=== PATIENT | female | born 1985 | race Caucasian/White ===

== ENCOUNTER → 2020-03-19 | Outpatient (CLI) | payer MEDICAID ==
--- NOTE | 2020-03-19 14:39 | Diagnostic Imaging Report ---
INDICATION: survey. TECHNIQUE: Multiple real-time grayscale images were obtained over the gravid uterus. COMPARISON: None. FINDINGS: There is a single live fetus in a vertex presentation. heart rate was recorded 134 bpm. Placenta is posterior. Amniotic fluid index is lower limits 7.6 cm. kidneys, bladder and stomach are unremarkable. brain was poorly visualized due to position. There is four-chambered heart. There is a three-vessel cord with normal insertion. spine is unremarkable. Cervical length is 5 cm. Biometrical measurements are as follows: Biparietal 7.51 cm, age 30 weeks 1 days. Head circumference 27.47 cm, age 30 weeks 1 days. Abdominal circumference 26.49 cm, age 30 weeks 5 days. Femur length 5.98 cm, age 31 weeks 1 days. Sonographic estimate age: 30 weeks 4 days. Sonographic estimated date of delivery: 05/24/2020. Estimated Weight: 1618 gm (+/- 236 gm). LMP percentile: 41%. heart rate: 134 beats per minute. number: 1 of 1. IMPRESSION: Single live IUP 30 weeks 4 days gestational age. Estimated date of confinement sonographically is 05/24/2020. Dictated by: Dictated on workstation # [id number]
== END ==
LOC: RAD 11:45
PROVIDERS: ATTEND Obstetrics & Gynecology
DX: Z34.93 Encounter for supervision of normal pregnancy, unspecified, third trimester (principal); Z3A.30 30 weeks gestation of pregnancy
CPT/HCPCS: 76805

== ENCOUNTER → 2020-04-07 | Outpatient (CLI) | payer MEDICAID | LOC: LABNPT 13:37 | PROVIDERS: ATTEND Obstetrics & Gynecology | DX: O13.9 Gestational [pregnancy-induced] hypertension without significant proteinuria, unspecified trimester (principal); Z3A.00 Weeks of gestation of pregnancy not specified | CPT/HCPCS: 82570; 84156 ==

== ENCOUNTER 2020-04-29 12:09 | Outpatient (CLI) | payer MEDICAID ==
[~2020-04-29] VITALS: Ht 172.7 cm; Wt 112.2 kg
--- NOTE | 2020-04-29 12:14 | NUR ---
RICARDA WAYNE presented to unit via W/C from ED, accompanied by ER STAFF, with c/o CONTRACTIONS, NONREACTIVE NST IN OFFICE. RICARDA WAYNE weighed, gowned, voided, and to bed. EFHM and TOCO applied, VS taken. RICARDA WAYNE oriented to bed controls, call light, TV, heat, and A/C controls.
[2020-04-29] MEDS ORDERED: D5 LR IV SOLUTION 1,000 ML IV SCH (12:30)
[2020-04-29 12:33] VITALS: BP 118/72
[2020-04-29 12:59] LABS: BASOPHILS % (AUTO) 0 % (0-10); EOSINOPHILS # (AUTO) 0.1 10^3/uL (0.0-0.3); EOSINOPHILS % (AUTO) 1 % (0-10); HEMATOCRIT 34 % (35-52); HEMOGLOBIN 11.1 g/dL (11.5-16.0); LYMPHOCYTES # (AUTO) 1.8 10^3/uL (1.0-4.0); LYMPHOCYTES % (AUTO) 14 % (12-44); MEAN CORPUSCULAR HEMOGLOBIN 31 pg (25-34); MEAN CORPUSCULAR HGB CONC 32 g/dL (32-36); MEAN CORPUSCULAR VOLUME 96 fL (80-99); MEAN PLATELET VOLUME 9.5 fL (9.0-12.2); MONOCYTES # (AUTO) 0.6 10^3/uL (0.0-1.0); MONOCYTES % (AUTO) 5 % (0-12); NEUTROPHILS # (AUTO) 10.4 10^3/uL (1.8-7.8); NEUTROPHILS % (AUTO) 80 % (42-75); PLATELET COUNT 274 10^3/uL (130-400); WHITE BLOOD COUNT 12.9 10^3/uL (4.3-11.0)
[2020-04-29 14:25] VITALS: BP 118/72
[2020-04-29] MEDS ORDERED: PNV11TAB5 PO (14:30)
--- NOTE | 2020-04-29 15:55 | NUR ---
ORDER RECEIVED FOR DISCHARGE HOME. DR AWARE OF PT CTX, REACTIVE NST NOTED.
--- NOTE | 2020-04-29 16:00 | NUR ---
MONITORS DC'D. PT REFUSES TO HAVE THE REMAINING FLUIDS BOLUS. IV SALINE LOCKED. PT UP TO THE BATHROOM TO CHANGE INTO OWN CLOTHES.
--- NOTE | 2020-04-29 16:10 | NUR ---
DISCHARGE PAPERS PROVIDED AND REVIEWED WITH PT, PT VERBALIZES UNDERSTANDING AND DENIES ANY QUESTIONS AT THIS TIME.
--- NOTE | 2020-04-29 16:13 | NUR ---
PT DISCHARGED FROM [facility] TO [facility] AMBULATORY IN STABLE CONDITION.
--- NOTE | 2020-04-30 07:55 | Physician Query-Final Dx ---
CAESAR MARIE 04/30/20 0755: Clinic Account Progress/Dx Physician Query: Please give diagnosis Please include # weeks gestation Date of Service Apr 29, 2020 at 12:09 VIJAY MUNOZ DO 04/30/20 1639: Clinic Account Progress/Dx DIAGNOSIS: Diagnosis 37 WEEK iup Previous Decreased movement. Irregular contractions CAESAR MARIE Apr 30, 2020 07:55 VIJAY MUNOZ DO Apr 30, 2020 16:39
== END 2020-04-29 16:13 | disposition home or self-care (01) ==
LOC: WSo 12:09 → LDRP 12:10 → WSo 16:13
PROVIDERS: ATTEND Obstetrics & Gynecology
DX: O62.8 Other abnormalities of forces of labor (principal); O34.219 Maternal care for unspecified type scar from previous cesarean delivery; O36.8130 Decreased fetal movements, third trimester, not applicable or unspecified; Z3A.37 37 weeks gestation of pregnancy
CPT/HCPCS: 36415; 85025; 86850; 86900; 86901

== ENCOUNTER 2020-05-04 05:38 | Outpatient (RCR) | payer MEDICAID ==
[~2020-05-04] VITALS: Ht 172.7 cm; Wt 109.1 kg
[~2020-05-04 05:38] MED LIST: PNV11TAB5 PO
== END 2020-05-04 12:05 | disposition home or self-care (01) ==
LOC: PREOP 05:38
PROVIDERS: ATTEND Obstetrics & Gynecology
DX: Z01.818 Encounter for other preprocedural examination (principal); Z20.822 Contact with and (suspected) exposure to COVID-19

== ENCOUNTER → 2020-05-08 | Outpatient (CLI) | payer MEDICAID ==
[~2020-05-08] MED LIST changes: +ACHD5005 PO; +DCS100C PO; +IBUP-844 PO
== END ==
LOC: LAB FS 11:08
PROVIDERS: ATTEND Obstetrics & Gynecology
DX: Z01.89 Encounter for other specified special examinations (principal); Z20.822 Contact with and (suspected) exposure to COVID-19
CPT/HCPCS: 87635

== ENCOUNTER 2020-05-11 06:15 | Inpatient (IN) | payer MEDICAID ==
[~2020-05-11] VITALS: Ht 172 cm; Wt 114.0 kg
[2020-05-11] VITALS (8 sets, daily range): BP systolic 101–132; BP diastolic 52–83
[~2020-05-11 06:15] MED LIST changes: -ACHD5005 PO; +CITRIC ACID/SOB CIT (BICITRA) 30 ML UDC ONE; -DCS100C PO; +ERYTHROMYCIN OPHTH OINT 1 GM (SINGLE USE) TUBE ONE; +FAMOTIDINE 20MG/2ML IV (PEPCID) ONE; -IBUP-844 PO; +METOCLOPRAMIDE INJ 10 MG/2 ML (REGLAN) ONE; +PHYTONADIONE (VIT. K) NEONATAL 1 MG/0.5 ML AMP ONE; +ceFAZolin 2 GM IV Premixed 50 ML ONE
[2020-05-11] MEDS ORDERED: FAMOTIDINE 20MG/2ML IV (PEPCID) IV ONE (06:30)
[2020-05-11] MEDS ORDERED: METOCLOPRAMIDE INJ 10 MG/2 ML (REGLAN) IV ONE (06:30)
[2020-05-11] MEDS ORDERED: LACTATED RINGERS 1,000 ML IV SCH (06:30)
[2020-05-11] MEDS ORDERED: CITRIC ACID/SOB CIT (BICITRA) 30 ML UDC PO ONE (06:30)
[2020-05-11] MEDS ORDERED: ceFAZolin 2 GM IV Premixed 50 ML IV ONE (06:30)
[2020-05-11] MEDS: LACTATED RINGERS 1,000 ML IV SCH ×2 (06:42→07:40)
[2020-05-11 06:52] LABS: BASOPHILS % (AUTO) 0 % (0-10); EOSINOPHILS # (AUTO) 0.2 10^3/uL (0.0-0.3); EOSINOPHILS % (AUTO) 1 % (0-10); HEMATOCRIT 35 % (35-52); HEMOGLOBIN 11.5 g/dL (11.5-16.0); LYMPHOCYTES # (AUTO) 2.3 10^3/uL (1.0-4.0); LYMPHOCYTES % (AUTO) 18 % (12-44); MEAN CORPUSCULAR HEMOGLOBIN 31 pg (25-34); MEAN CORPUSCULAR HGB CONC 33 g/dL (32-36); MEAN CORPUSCULAR VOLUME 95 fL (80-99); MEAN PLATELET VOLUME 9.4 fL (9.0-12.2); MONOCYTES # (AUTO) 0.7 10^3/uL (0.0-1.0); MONOCYTES % (AUTO) 6 % (0-12); NEUTROPHILS # (AUTO) 9.5 10^3/uL (1.8-7.8); NEUTROPHILS % (AUTO) 75 % (42-75); PLATELET COUNT 311 10^3/uL (130-400); WHITE BLOOD COUNT 12.8 10^3/uL (4.3-11.0)
[2020-05-11] MEDS ORDERED: OXYTOCIN PRE-MIX DRIP 1,000 ML IV ONE (07:00)
[2020-05-11] MEDS ORDERED: PHENYLEPHRINE 100 MCG/ML 10 ML (ANESTHESIA) SYR ONE (07:00)
[2020-05-11] MEDS ORDERED: fentaNYL INJECTION 100 MCG/2 ML AMP ONE (07:01)
--- NOTE | 2020-05-11 07:19 | History & Physical-OB ---
OB - Chief Complaint & HPI Date/Time Date of Admission: Date of Admission: May 11, 2020 at 06:15 Date seen by a Provider: May 11, 2020 Time Seen by a Provider: 07:15 Chief Complaint/History OB-Reason for Admission/Chief: Section Hx : 7 Hx Para: 7 Expected Date of Delivery: May 17, 2020 Gestational Age in Weeks: 39 Gestational Age in Days: 1 Indication for : desires repeat Admission Nurse Assessment Rev: Yes History of Labs A pos Antibody neg RI HBsAg NR HIV NR GC neg GBS neg Allergies and Home Medications Allergies Coded Allergies: No Known Drug Allergies (Unverified , 04/29/20) Home Medications Gtb047/FA/Omega3/Dha/Fish Oil 1 Each Tab.chew, 2 EACH PO DAILY, (Reported) Patient Home Medication List Home Medication List Reviewed: Yes OB - History Hx of Present Care: Yes Ultrasounds: Normal mid trimester US Obstetrical Complications: None Medical Complications: None Patient Past Medical History tobacco use OB - Admission Exam Physical Exam Vitals: Vital Signs 05/11/20 06:54 Temp 36.6 Pulse 77 Resp 18 Pulse Ox 98 O2 Delivery Room Air HEENT: NCAT Heart: Rhythm Normal Lungs: Clear Abdomen: Gravid Extremities: Normal Reflexes: Normal Cervical Dilatation: None Effacement: 50% Station: -1 Membranes: Intact Heart Rate: 130's Accelerations: Accelerations Present Decelerations: No Decelerations Short Term Variability: Present Penitentiary Variability: Average (6-25) Contractions on Admission: 6-10 Minutes Apart Intensity: Mild Labs Laboratory Tests Test 05/11/20 06:35 Range/Units White Blood Count 12.8 H 4.3-11.0 10^3/uL Red Blood Count 3.73 L 3.80-5.11 10^6/uL Hemoglobin 11.5 11.5-16.0 g/dL Hematocrit 35 35-52 % Mean Corpuscular Volume 95 80-99 fL Mean Corpuscular Hemoglobin 31 25-34 pg Mean Corpuscular Hemoglobin Concent 33 32-36 g/dL Red Cell Distribution Width 13.7 10.0-14.5 % Platelet Count 311 130-400 10^3/uL Mean Platelet Volume 9.4 9.0-12.2 fL Immature Granulocyte % (Auto) 1 % Neutrophils (%) (Auto) 75 42-75 % Lymphocytes (%) (Auto) 18 12-44 % Monocytes (%) (Auto) 6 0-12 % Eosinophils (%) (Auto) 1 0-10 % Basophils (%) (Auto) 0 0-10 % Neutrophils # (Auto) 9.5 H 1.8-7.8 10^3/uL Lymphocytes # (Auto) 2.3 1.0-4.0 10^3/uL Monocytes # (Auto) 0.7 0.0-1.0 10^3/uL Eosinophils # (Auto) 0.2 0.0-0.3 10^3/uL Basophils # (Auto) 0.0 0.0-0.1 10^3/uL Immature Granulocyte # (Auto) 0.1 0.0-0.1 10^3/uL OB - Assessment/Plan/Diagnosis Assessment Assessment: section Admission Dx 35 yo @ 39 weeks Previous GBS neg Admission Status: Inpatient Order (span 2 midnights) Reason for Inpatient Admission: Repeat Plan Plan: Section VIJAY MUNOZ DO May 11, 2020 07:19
[2020-05-11] MEDS ORDERED: MEASLES,MUMPS,RUBELLA 1 EA INJ SC SCH (07:30)
[2020-05-11] MEDS ORDERED: TETANUS,DIPTH,PERTUSS P/F (BOOSTRIX) 0.5 ML VIAL IM SCH (07:30)
[2020-05-11] MEDS ORDERED: ONDANSETRON 4 MG/2 ML (SDV) Z0FRAN IVP PRN (07:30)
[2020-05-11] MEDS ORDERED: ACHD5005 PO (07:32)
[2020-05-11] MEDS ORDERED: DCS100C PO (07:32)
[2020-05-11] MEDS ORDERED: IBUP-844 PO (07:32)
--- NOTE | 2020-05-11 07:33 | Discharge Inst-Women's Service ---
Discharge Inst-Women's Serv Depart Medication/Instructions New, Converted or Re-Newed RX: RX on Chart Final Diagnosis POD 2 RLTCS Problems Reviewed?: Yes Consults/Follow Up Additional Follow Up: Yes Orders/Referrals Dr. Munoz in 7-10 days and in 6 weeks Activity Activity: Activity as Tolerated Driving Instructions: No Driving for 1 Week NO SMOKING: NO SMOKING Nothing Inside Vagina: No Douching, No [place], No Tampons Diet Discharge Diet: No Restrictions Symptoms to Report to : Bleeding Excessive, Pain Increased, Fever Over 101 Degrees F, Vaginal Bleeding Increase, Questions/Concerns For Any Problems or Questions: Contact Your Physician VIJAY MUNOZ DO May 11, 2020 07:33
[2020-05-11] MEDS ORDERED: BUPIVACAINE 0.5% 30 ML (SENSORCAINE) VIAL ONE (08:08)
[2020-05-11] MEDS: OXYTOCIN PRE-MIX DRIP 500 ML IV SCH ×2 (09:06→13:29)
[2020-05-11] MEDS: KETOROLAC 30 MG/ML VIAL IV SCH ×3 (09:24→20:39)
[2020-05-11] MEDS: HYDROcodone/APAP 5 MG/325 MG (LORTAB) TAB PO PRN ×3 (10:47→22:33)
--- NOTE | 2020-05-11 11:24 | OPERATIVE REPORT ---
DATE OF SERVICE: PREOPERATIVE DIAGNOSES: 1. A 35-year-old Pito P7 at 39 weeks and 1-day gestation. 2. Previous . POSTOPERATIVE DIAGNOSES: 1. A 35-year-old GYoshi P7 at 39 weeks and 1-day gestation. 2. Previous . PROCEDURE: Repeat low transverse section. SURGEON: Eriberto Vazquez DO ANESTHESIA: Spinal. ESTIMATED BLOOD LOSS: 500 mL. URINE OUTPUT: 50 mL clear at the end of procedure. FLUIDS: 2200 mL lactated Ringer's solution. FINDINGS: A live male weighing 7 pounds 11 ounces, Apgars of 8 and 9. Grossly normal appearing uterus, bilateral fallopian tubes and ovaries. SPECIMEN SENT: Placenta. INDICATIONS FOR PROCEDURE: This 35-year-old female is a patient, who had sought care in my office. She was a late transfer of care from [facility]. Upon her initial evaluation, she had risk factors including advanced maternal age and tobacco use in . We discussed these risk factors and their effects on the . She demonstrated understanding of all of this. I also discussed with the patient, risk of repeat , which she wished to proceed with. Risks of procedure were discussed with the patient in detail in the preoperative area including risk of bleeding, infection, damage to surrounding structures including, but not limited to bowel, bladder, ureter, kidneys, possible need for reoperation, postoperative complications that may occur, risk from anesthesia and even . After everything was discussed with the patient in detail and all of her questions were answered, consent was obtained, the patient was taken to the operating room. OPERATIVE REPORT IN DETAIL: Once in the operating room, spinal analgesia was found to be adequate, she was placed in supine position with leftward tilt, prepped and draped in normal sterile fashion where a timeout was performed and anesthesia was tested. I then make a Pfannenstiel skin incision with a knife and carried down to underlying fascia using Bovie cautery. The fascial incision extended laterally using Bovie cautery. Superior aspect of fascial incision was then grasped with Santa clamps, tented up and dissected off the underlying rectus muscles. The inferior aspect of the fascial incision was then grasped with Santa clamps, tented up and dissected off the underlying rectus muscles. Rectus muscle was then dissected down the midline using Carbajal scissors, which exposed the peritoneum, which I entered bluntly and extended using blunt traction. Andry ring retractor was placed in the peritoneal incision, which offers excellent lateral sidewall retraction. I identified the lower uterine segment, which was found to be slightly thinned out and make a low transverse incision to the vesicouterine peritoneum and bluntly dissected off the lower uterine segment. I proceeded with myotomy until membranes were visualized, at which point I extended the uterine incision laterally and superiorly using bandage scissors. Amniotomy was performed at that point. Clear fluid was noted. Infant was found in vertex presentation. With gentle fundal pressure, the 's head was elevated up the incision, where it was delivered through the incision. The nares and oropharynx were bulb suctioned. Anterior and posterior shoulders were delivered after nuchal cord was reduced x1 and the remainder of the infant was then brought to the operative field with a cord was doubly clamped and cut and infant was handed off to waiting nurses in attendance. Cord blood was collected, 3-vessel cord with intact placenta was delivered spontaneously thereafter. IV Pitocin was initiated to facilitate uterine contraction. Uterine fundus confirmed by manual massage. Uterus was then exteriorized and cleared of all endometrial clots and debris. I then proceeded with closing the uterine incision using 0 Vicryl suture in running locked fashion. Second layer of imbricating 0 Monocryl was placed. Excellent hemostasis was noted after doing this. I then placed the uterus back in the pelvis and copiously irrigated the pelvis using the normal saline. Once again, there was no active bleeding noted from any of my dissection planes. I placed Interceed antiadhesive over my low transverse incision. I removed the Andry ring retractor. I then proceeded with closing the peritoneum using 3-0 Vicryl suture in a running fashion. The rectus muscles were reapproximated using 3-0 Vicryl suture in interrupted fashion. The fascia was reapproximated using 0 Vicryl suture in running fashion. Subcutaneous tissue was reapproximated using 3-0 plain interrupted subcutaneous stitch and skin reapproximated using 4-0 Monocryl in a running subcuticular. Dermabond was applied to incision and sterile dressing with adhesive white tape. The patient tolerated the procedure well and was taken to recovery area in stable condition. Lap and sponge counts were correct at the end of the procedure. Instrument counts correct as well. Two grams of Ancef were given preoperatively for infection prophylaxis. Job ID: [id number] DocumentID: [id number] Dictated Date: 05/11/2020 09:10:50 Bulk Picker Date: 05/11/2020 11:23:53 Dictated By: DO SONY KHANNA
[2020-05-11] MEDS: CATHETER FLUSH 10 ML SYR IV SCH (19:39)
[2020-05-11] MEDS: DOCUSATE SODIUM 100 MG (COLACE) CAP PO SCH ×2 (19:39→20:39)
[2020-05-12 00:30] VITALS: BP 132/72
[2020-05-12 03:03] VITALS: BP 124/62
[2020-05-12] MEDS: CATHETER FLUSH 10 ML SYR IV SCH (03:03)
[2020-05-12] MEDS: KETOROLAC 30 MG/ML VIAL IV SCH (03:03)
[2020-05-12 05:14] LABS: BASOPHILS % (AUTO) 0 % (0-10); EOSINOPHILS # (AUTO) 0.2 10^3/uL (0.0-0.3); EOSINOPHILS % (AUTO) 1 % (0-10); HEMATOCRIT 31 % (35-52); LYMPHOCYTES # (AUTO) 2.7 10^3/uL (1.0-4.0); LYMPHOCYTES % (AUTO) 21 % (12-44); MEAN CORPUSCULAR HEMOGLOBIN 31 pg (25-34); MEAN CORPUSCULAR HGB CONC 32 g/dL (32-36); MEAN CORPUSCULAR VOLUME 97 fL (80-99); MEAN PLATELET VOLUME 9.4 fL (9.0-12.2); MONOCYTES % (AUTO) 8 % (0-12); NEUTROPHILS # (AUTO) 9.1 10^3/uL (1.8-7.8); NEUTROPHILS % (AUTO) 69 % (42-75); PLATELET COUNT 251 10^3/uL (130-400); WHITE BLOOD COUNT 13.1 10^3/uL (4.3-11.0)
[2020-05-12] MEDS: HYDROcodone/APAP 5 MG/325 MG (LORTAB) TAB PO PRN ×3 (06:27→19:23)
--- NOTE | 2020-05-12 07:57 | Postpartum Progress Note ---
SWATI FOLEY MED STUDENT 05/12/20 0757: Note Note Day # 1 Subjective: Patient is without complaints. Ambulating, voiding. Tolerating a regular diet without nausea or vomiting. Normal lochia. Pain is well controlled with oral pain medications. Objective: Physical Exam: General - Alert and oriented, no apparent distress Abdomen - Soft, appropriately tender to palpation, non-distended, fundus firm at umbilicus Extremities - no edema, negative Simran's bilaterally Dressing removed, incision intact with small amount of serosanguinous drainage Assessment: Post- day # 1, status post c section. Recovering well, hemodynamically stable Postoperative anemia Plan: Routine care. Encourage breast feeding. Encourage ambulation. Ferrous sulfate supplementation. Plan for discharge tomorrow. Vitals - Labs Vital Signs - I&O Vital Signs Date Time Temp Pulse Resp B/P (MAP) Pulse Ox O2 Delivery O2 Flow Rate FiO2 05/12/20 03:03 36.1 63 18 124/62 (82) 96 Room Air 05/12/20 00:30 36.0 67 18 132/72 (92) 98 Room Air 05/11/20 20:39 36.1 72 18 125/58 (80) 97 Room Air 05/11/20 17:23 36.3 65 18 132/59 (83) 96 Room Air 05/11/20 13:05 36.8 66 18 116/60 (78) 96 Room Air 05/11/20 09:27 36.2 18 113/83 (93) 98 Room Air 05/11/20 09:27 Room Air 05/11/20 09:12 Room Air 05/11/20 09:12 36.2 18 111/76 (88) 99 Room Air 05/11/20 08:57 36.3 18 101/52 (68) 97 Room Air 05/11/20 08:57 Room Air 05/11/20 08:42 Room Air 05/11/20 08:42 36.7 18 111/62 (78) 96 Room Air I & O 05/12/20 06:59 Intake Total 3550 ml Output Total 550 ml Balance 3000 ml Labs Laboratory Tests 05/12/20 04:57: White Blood Count 13.1H, Red Blood Count 3.25L, Hemoglobin 10.0L, Hematocrit 31L , Mean Corpuscular Volume 97, Mean Corpuscular Hemoglobin 31, Mean Corpuscular Hemoglobin Concent 32, Red Cell Distribution Width 13.9, Platelet Count 251, Mean Platelet Volume 9.4, Immature Granulocyte % (Auto) 1, Neutrophils (%) (Auto) 69, Lymphocytes (%) (Auto) 21, Monocytes (%) (Auto) 8, Eosinophils (%) (Auto) 1, Basophils (%) (Auto) 0, Neutrophils # (Auto) 9.1H, Lymphocytes # (Auto) 2.7, Monocytes # (Auto) 1.0, Eosinophils # (Auto) 0.2, Basophils # (Auto) 0.0, Immature Granulocyte # (Auto) 0.1 Microbiology 05/11/20 MRSA Screen - Final, Complete MRSA not isolated VIJAY MUNOZ DO 05/12/20 0823: Note Note Verification and Attestation of Medical Student E/M Service A medical student performed and documented this service in my presence. I reviewed and verified all information documented by the medical student and made modifications to such information, when appropriate. I personally performed the physical exam and medical decision making. Vijay Munoz, May 12, 2020,08:23 SWATI FOLEY MED STUDENT May 12, 2020 07:57 VIJAY MUNOZ DO May 12, 2020 08:23
[2020-05-12] MEDS ORDERED: IBUPROFEN 600 MG (MOTRIN) TAB PO ONE (08:58)
[2020-05-12 09:06] VITALS: BP 135/65
[2020-05-12] MEDS: IBUPROFEN 600 MG (MOTRIN) TAB PO SCH ×3 (09:07→21:36)
[2020-05-12] MEDS: DOCUSATE SODIUM 100 MG (COLACE) CAP PO SCH ×2 (09:07→21:36)
--- NOTE | 2020-05-12 10:38 | Anesthesia-Regional Post-Op ---
Regional Patient Condition Mental Status: Alert, Oriented x3 Circulation: Same as Pre-Op Headache: Absent Sensation: Full Recovery Motor Block: Absent Post Op Complications Complications None Follow Up Care/Instructions Patient Instructions None needed. Anesthesia/Patient Condition Patient is doing well, no complaints, stable vital signs, no apparent adverse anesthesia problems. JESSICA OWENS DO May 12, 2020 10:38
[2020-05-12 15:22] VITALS: BP 118/60
[2020-05-12 21:36] VITALS: BP 125/76
[2020-05-13 03:59] VITALS: BP 128/61
[2020-05-13] MEDS: HYDROcodone/APAP 5 MG/325 MG (LORTAB) TAB PO PRN ×2 (03:59→09:42)
[2020-05-13] MEDS: IBUPROFEN 600 MG (MOTRIN) TAB PO SCH ×2 (03:59→09:39)
--- NOTE | 2020-05-13 07:53 | Postpartum Progress Note ---
Note Note Day # 2 Subjective: Patient is without complaints. Ambulating, voiding. Tolerating a regular diet without nausea or vomiting. Normal lochia. Pain is well controlled with oral pain medications. Objective: Physical Exam: General - Alert and oriented, no apparent distress Abdomen - Soft, appropriately tender to palpation, non-distended, fundus firm at umbilicus Extremities - no edema, negative Simran's bilaterally Incision c/d/i Assessment: Post- day # 2, status post c section Recovering well, hemodynamically stable Plan: Routine care. Encourage breast feeding. Encourage ambulation. Ferrous sulfate supplementation. Plan for discharge today. Vitals - Labs Vital Signs - I&O Vital Signs Date Time Temp Pulse Resp B/P (MAP) Pulse Ox O2 Delivery O2 Flow Rate FiO2 05/13/20 03:59 36.4 67 18 128/61 (83) 97 Room Air 05/12/20 21:36 36.2 90 18 125/76 (92) 97 Room Air 05/12/20 15:22 36.2 73 18 118/60 (79) Room Air 05/12/20 09:06 36.1 74 18 135/65 (88) 98 Room Air I & O 05/13/20 07:00 Intake Total 1200 ml Balance 1200 ml Labs Microbiology 05/11/20 MRSA Screen - Final, Complete MRSA not isolated SWATI FOLEY MED STUDENT May 13, 2020 07:52
[2020-05-13] MEDS: DOCUSATE SODIUM 100 MG (COLACE) CAP PO SCH (09:40)
[2020-05-13 09:46] VITALS: BP 120/59
[2020-05-13 10:35] VITALS: BP 120/59
--- NOTE | 2020-05-14 13:29 | Physician Query Clarification ---
PQ-Further Specificity Admission/Discharge Admission Date: May 11, 2020 at 06:15 Discharge Date: May 13, 2020 at 10:35 Dr. Munoz, The medical record reflects the following clinical scenario: History/Risk Factors: c/s delivery Clinical Findings: post op hgb/hct 10.0 Treatment: ferrous sulfate Question: Can you further specify postop anemia per the clinical indicators above? Please document a response in the Progress Notes or Discharge Summary. 1. postop anemia d/t acute blood loss 2. postop anemia type of anemia unknown 3. Other, with explanation of the clinical findings. 4. Clinically undetermined, no explanation for the clinical findings. PHYSICIAN RESPONSE Can you specify per above: Other, explanation/clinical finding Explanation/Clinical Findings Acute blood loss anemia Please remember a lack of response to the above will prompt a phone page by CDI/Coding staff. In responding to this query, please exercise your independent professional judgment. The purpose of this communication is to more accurately reflect the complexity of your patients condition. The fact that a question is asked does n ot imply that any particular answer is desired or expected. Thank you for your timely response to this clarification. Requestors name: [email or web address] THIS PHYSICIAN QUERY FORM IS A PERMANENT PART OF THE MEDICAL RECORD NEVIN CHAMPION May 14, 2020 13:29 VIJAY MUNOZ DO May 14, 2020 18:45
== END 2020-05-13 10:35 | disposition home or self-care (01) | DRG 787 ==
LOC: LDRP 06:15
PROVIDERS: ADMIT Obstetrics & Gynecology; ATTEND Obstetrics & Gynecology
PROC: 10D00Z1 Extraction of Products of Conception, Low, Open Approach (ICD-10-PCS; principal; 2020-05-11 07:30)
DX: O34.211 Maternal care for low transverse scar from previous cesarean delivery (principal); D62 Acute posthemorrhagic anemia; O90.81 Anemia of the puerperium; O69.81X0 Labor and delivery complicated by cord around neck, without compression, not applicable or unspecified; Z3A.39 39 weeks gestation of pregnancy; Z37.0 Single live birth; Z23 Encounter for immunization
CPT/HCPCS: 36415; 85025; 86850; 86900; 86901; 87081; 88307; 90715; 94664